=== PATIENT | female | born 1980 | race Caucasian/White ===

== ENCOUNTER 2018-11-17 10:02 | Outpatient (CLI) | payer MEDICAID ==
--- NOTE | 2018-11-17 12:25 | MMO ---
DIGITAL SCREENING MAMMOGRAM: History: 38-year-old female. Baseline exam. This study is interpreted with the assistance of computer aided detection. FINDINGS: Bilateral craniocaudal and oblique MLO digital screening mammograms obtained. Images demonstrate no definite evidence of masses or lesions. No evidence of architectural distortion seen. No evidence of suspicious microcalcifications seen. IMPRESSION: BIRADS category 1 - negative exam. POS: BRISSA
== END 2018-11-17 10:03 | disposition home or self-care (01) ==
LOC: SCSMAMMO 10:02
PROVIDERS: ATTEND Family Medicine
DX: Z12.31 Encounter for screening mammogram for malignant neoplasm of breast (principal)
CPT/HCPCS: 77067

== ENCOUNTER 2020-08-29 09:00 | Outpatient (CLI) | payer MEDICAID ==
--- NOTE | 2020-08-29 10:53 | MMO ---
Bilateral MAMMO Bilat Screen DDI. CLINICAL HISTORY: Patient is 40 years old and is seen for screening. The patient has no family history of breast cancer. The patient has no personal history of cancer. VIEWS: The views performed were: bilateral craniocaudal and bilateral mediolateral oblique. FILMS COMPARED: The present examination has been compared to a prior imaging study performed at [facility] on 11/07/2018. This study has been interpreted with the assistance of computer-aided detection. MAMMOGRAM FINDINGS: There are scattered fibroglandular densities. There are no suspicious masses, suspicious calcifications, or new areas of architectural distortion. IMPRESSION: THERE IS NO MAMMOGRAPHIC EVIDENCE OF MALIGNANCY. A ROUTINE FOLLOW-UP MAMMOGRAM IN 1 YEAR IS RECOMMENDED. ACR BI-RADS Category 1 - Negative MAMMOGRAPHY NOTE: 1. A negative mammogram report should not delay a biopsy if a dominant of clinically suspicious mass is present. 2. Approximately 10% to 15% of breast cancers are not detected by mammography. 3. Adenosis and dense breasts may obscure an underlying neoplasm. Reported by: CHELITA SEBASTIAN MD Electonically Signed: [id number]
== END 2020-08-29 09:01 | disposition home or self-care (01) ==
LOC: BICMAMMO 09:00
PROVIDERS: ATTEND Family Medicine
DX: Z12.31 Encounter for screening mammogram for malignant neoplasm of breast (principal)
CPT/HCPCS: 77067

== ENCOUNTER 2022-09-11 08:26 | Outpatient (CLI) | payer BC ==
[2022-09-11] MEDS ORDERED: Iopamidol 370 76% 100 ML VIAL ONE (11:09)
== END 2022-09-11 08:27 | disposition home or self-care (01) ==
LOC: CT 08:26
PROVIDERS: ATTEND Internal Medicine Gastroenterology
DX: R93.5 Abnormal findings on diagnostic imaging of other abdominal regions, including retroperitoneum (principal); K80.20 Calculus of gallbladder without cholecystitis without obstruction
CPT/HCPCS: 74170; Q9967